=== PATIENT | male | born 1980 | race Two or more races ===

== ENCOUNTER → 2022-11-23 | Emergency (ER) | payer OTHER ==
[~2022-11-23] VITALS: Ht 175.3 cm; Wt 81.6 kg
== END | disposition home or self-care (01) ==
LOC: ER 09:39
DX: S61.511A Laceration without foreign body of right wrist, initial encounter (principal); W26.0XXA Contact with knife, initial encounter; Y93.9 Activity, unspecified; Y92.89 Other specified places as the place of occurrence of the external cause; Y99.9 Unspecified external cause status; Z88.6 Allergy status to analgesic agent